=== PATIENT | female | born 1980 | race Caucasian/White ===

== ENCOUNTER 2017-05-04 05:57 | Day surgery (SDC) | payer BC, OTHER ==
[2017-05-04] MEDS ORDERED: Dextrose 5%-Lactated Ringers 1,000 ML IV SCH (06:30)
[2017-05-04] MEDS ORDERED: ceFAZolin 2 GM in Premix Bag 1 BAG IV ONE (06:30)
[2017-05-04] MEDS ORDERED: Acetaminophen 500 MG Tab PO ONE (06:30)
[2017-05-04] MEDS ORDERED: Midazolam 1 MG/ML 2 ML SDV ONE (06:54)
[2017-05-04] MEDS ORDERED: fentaNYL 100 MCG/2 ML SDV ONE ×2 (06:54→08:05)
[2017-05-04] MEDS ORDERED: Propofol 200 MG/20 ML SDV ONE ×3 (06:54→08:13)
[2017-05-04] MEDS ORDERED: Ketorolac 60 MG/2 ML SDV ONE (07:31)
[2017-05-04] MEDS: Lidocaine 1% with EPINEPHrine 1:100,000 50 ML MDV ONE ×2 (07:39→07:41)
[2017-05-04] MEDS: Bupivacaine 0.5% 50 ML MDV ONE ×2 (07:39→07:41)
[2017-05-04] MEDS ORDERED: Acetaminophen/oxyCODONE 325-5 MG Tab PO PRN (09:30)
--- NOTE | 2017-05-08 17:16 | OR ---
DATE OF PROCEDURE: 05/04/2017 PREOPERATIVE DIAGNOSIS: Left inguinal hernia. POSTOPERATIVE DIAGNOSES: 1. Direct left inguinal hernia. 2. Left ilioinguinal nerve at risk for scar entrapment. OPERATIVE PROCEDURE: 1. Left inguinal hernia repair with mesh (90274). 2. Division of left ilioinguinal nerve (12295). ANESTHESIA: Local plus IV sedation. PRODUCT DEVELOPMENT ACTUARY: Annmarie Patel PA-C. INDICATIONS FOR PROCEDURE: This is a 36-year-old female presenting with a progressively symptomatic left inguinal hernia. After preoperative evaluation and discussion, she wished to proceed with a repair using mesh plug technique. Potential risks of the procedure including bleeding, infection, injury to underlying viscera, problems with the hernia recurring or mesh becoming infected, as well as possible chronic pain following the procedure were all gone over. Additionally, in a mesh repair like this, it often becomes apparent that the mesh will be lying over the ilioinguinal nerve and that might make the patient very high risk for chronic pain, resulting from inflammation and entrapment of scar around the nerves and if this is perceived to be, the ilioinguinal nerve would be divided leaving an area of anesthesia in the area below the incision. This was all reviewed with the patient and she wishes to proceed. DETAILS OF PROCEDURE: The patient was taken to the operating room and placed in a supine position. IV sedation was administered, after which the abdomen and groin areas were prepped and draped. The left inguinal area was then anesthetized with 1% lidocaine mixed with Marcaine and a standard left inguinal incision made, carried down through the skin and subcutaneous tissue and external oblique aponeurosis. The bladder flaps were then raised superiorly and inferiorly, and the cord structures were mobilized upward. The patient was noted to have an ilioinguinal nerve that would lay across the bed of the floor and would be covered by the flat portion of the mesh plug system. Given this, it was divided and a portion of the nerve excised and finally divided at the lateral aspect of the incision, so as to minimize chances of postoperative neuropathic pain. At this point, the cord structure was mobilized upward. The inspection of the cord revealed no indirect hernia. The patient did have an obvious direct hernia present medially and at that point, the transversalis fascia was then divided, there was already a dissection underneath that plane medially, laterally, and superiorly underneath the conjoint tendon. A large mesh plug was then placed into the defect and fixed inferiorly to the Sha's ligament with titanium tacking screws to the underside of the conjoint tendon medially, superiorly, and laterally with horizontal mattress sutures of 2-0 Vicryl stitch. At that point, the flat portion of the mesh plug system was placed across the floor and sutured lateral to the cord structures with a 3-0 Vicryl stitch and fixed to the pubic tubercle with titanium tacking screws, the cord structures were placed over this at this level and the external oblique aponeurosis was then approximated with a running 3-0 Vicryl stitch as was the Rogelio's fascia, and the skin closed with 4-0 Vicryl subcuticular stitch. Sterile dressing was applied. The patient was taken to the recovery room in satisfactory condition. There were no evident complications. Physician players assistant, Annmarie Patel, played an essential role in assisting in this case, helping to position the patient, retract structures as needed, as well as suturing and cutting sutures as indicated. Her presence improved patient safety and decreased operative time. Chucky Wise MD /[id number]
== END 2017-05-04 12:15 | disposition home or self-care (01) ==
LOC: JP.SDS 05:57 → EDSEX 10:00 → JP.SDS 12:15
PROVIDERS: ATTEND Surgery
DX: K40.90 Unilateral inguinal hernia, without obstruction or gangrene, not specified as recurrent (principal); G57.82 Other specified mononeuropathies of left lower limb
CPT/HCPCS: 49505; 64772; A9270; C1781; J0690; J1885; J2250; J2704; J3010; J7042; 88302